=== PATIENT | female | born 1940 | race Caucasian/White ===

== ENCOUNTER 2017-01-08 16:15 | Inpatient (IN) | payer MEDICARE, OTHER ==
[2017-01-08] MEDS ORDERED: Ondansetron 4 MG/2 ML SDV IVPUSH PRN (16:54)
[2017-01-08 17:15] LABS: CHLORIDE,CL 104 mEq/L (98-106); SODIUM,NA 145 mEq/L (136-145)
--- NOTE | 2017-01-08 17:25 | EDM.PDOC ---
ED HPI GENERAL MEDICAL PROBLEM - General Chief Complaint: General Stated Complaint: N/V, abdominal pain, dizziness Time Seen by Provider: 01/08/17 17:00 Source of Information: Reports: Patient, Family History Limitations: Reports: Altered Mental Status, Other (Patient verbalizes declining health with decreased memory unable to recall recent events. Chronic ) - History of Present Illness INITIAL COMMENTS - FREE TEXT/NARRATIVE: Patient indicates she has been having declination with her health the past 4 months with decreased mentation and decreased visual acuity. Vague presentation- The past 2 days she noted to generally not feel well although was able to have breakfast with tea and toast this am. She indicates around 4:00 today increased nausea with vomiting of green bile with dizziness. She states she tried resting but continued to feel ill therefore was brought to the ER by her . Onset: Gradual Onset Date: 01/06/17 Onset Time: 08:00 Duration: Day(s):, Getting Worse Location: Reports: Abdomen Quality: Reports: Dull Severity: Mild Improves with: Reports: None Worsens with: Reports: Movement Associated Symptoms: Reports: Confusion, Nausea/Vomiting, Weakness. 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 Abdomen Pain Score (Numeric/FACES): 5 - Related Data Allergies Allergy/AdvReac Type Severity Reaction Status Date / Time No Known Allergies Allergy Verified 01/08/17 16:23 Home Meds: Home Meds Antiox #11/OM3/DHA/EPA/Lut/Colin [Eye Health Adult 50+ Softgel] 1 each PO DAILY [History] Aspirin 325 mg PO DAILY 01/08/17 [History] Cyanocobalamin (Vitamin B12) [Vitamin B13] 500 mcg PO BEDTIME 01/08/17 [History] Donepezil [Aricept] 10 mg PO QAM 01/08/17 [History] Levothyroxine [Synthroid] 88 mcg PO ACBREAKFAST 01/08/17 [History] Losartan [Cozaar] 50 mg PO DAILY 01/08/17 [History] Metoprolol Succinate 25 mg PO BEDTIME 01/08/17 [History] Pantoprazole Sodium [Protonix] 20 mg PO DAILY 01/08/17 [History] Pyridoxine HCl [Vitamin B-6] 100 mg PO DAILY 01/08/17 [History] Past Medical History HEENT History: Reports: Other (See Below) (Visual loss) Cardiovascular History: Reports: Hypertension Respiratory History: Reports: None Gastrointestinal History: Reports: GERD Genitourinary History: Reports: None 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 Musculoskeletal History: Reports: None Neurological History: Reports: Alzheimers Disease, Vertigo Psychiatric History: Reports: Alzheimers Disease, Dementia Endocrine/Metabolic History: Reports: Hypothyroidism Hematologic History: Reports: None Immunologic History: Reports: None Oncologic (Cancer) History: Reports: Uterine Dermatologic History: Reports: None - Infectious Disease History Infectious Disease History: Reports: None - Past Surgical History Head Surgeries/Procedures: Reports: None HEENT Surgical History: Reports: None Cardiovascular Surgical History: Reports: Coronary Artery Bypass Respiratory Surgical History: Reports: None GI Surgical History: Reports: Other (See Below) (GERD on PPI) Female Surgical History: Reports: Hysterectomy Endocrine Surgical History: Reports: None Neurological Surgical History: Reports: None Musculoskeletal Surgical History: Reports: None Oncologic Surgical History: Reports: None Dermatological Surgical History: Reports: None - Past Imaging History Past Imaging History: Reports: Other (See Below) (Unknown -Patient has PCP in [place]) Social & Family History - Family History Family Medical History: Noncontributory ED ROS GENERAL - Review of Systems Review Of Systems: See Below Constitutional: Reports: Malaise, Weakness, Fatigue HEENT: Reports: Glasses, Vision Change (Chronic decreased visual acuity) Respiratory: Reports: No Symptoms Cardiovascular: Reports: Lightheadedness Endocrine: Reports: Fatigue GI/Abdominal: Reports: Abdominal Pain, Mucous in Stool, Nausea, Vomiting. Denies: Anorexia, Black Stool, Bloody Stool, Decreased Appetite, Distension, Hematemesis : Reports: No Symptoms Musculoskeletal: Reports: No Symptoms Skin: Reports: No Symptoms Neurological: Reports: Confusion, Dizziness, Pre-Existing Deficit, Gait Disturbance Psychiatric: Reports: Confusion Hematologic/Lymphatic: Reports: No Symptoms Immunologic: Reports: No Symptoms ED EXAM, GENERAL - Physical Exam Exam: See Below Free Text/Narrative:: Patient indicates she has been having declination with her health the past 4 months with decreased mentation and decreased visual acuity. Vague presentation- The past 2 days she noted to generally not feel well although was able to have breakfast with tea and toast this am. She indicates around 4:00 today increased nausea with vomiting of green bile with dizziness. She states she tried resting but continued to feel ill therefore was brought to the ER by her . Exam Limited By: Altered Mental Status General Appearance: Alert, WD/WN, No Apparent Distress Eye Exam: Bilateral Eye: EOMI, Normal Fundi, Normal Inspection, PERRL, Vision Changes (Chronic) Ears: Normal External Exam, Normal Canal, Hearing Grossly Normal, Normal TMs Ear Exam: Bilateral Ear: Auricle Normal, Canal Normal, TM normal Nose: Normal Inspection, Normal Mucosa, No Blood Throat/Mouth: Normal Inspection, Normal Lips, Normal Teeth, Normal Gums, Normal Oropharynx, Normal Voice, No Airway Compromise Head: Atraumatic, Normocephalic Neck: Normal Inspection, Supple, Non-Tender, Full Range of Motion. No: Limited Range of Motion, Thyromegaly Respiratory/Chest: No Respiratory Distress, Lungs Clear, Normal Breath Sounds, No Accessory Muscle Use, Chest Non-Tender Cardiovascular: Normal Peripheral Pulses, No Edema, No Murmur, Bradycardia Peripheral Pulses: 2+: Radial (L), Radial (R), Popliteal (L), Popliteal (R), Posterior Tibial (L), Posterior Tibial (R), Dorsalis Pedis (L), Dorsalis Pedis ( R) GI/Abdominal: Normal Bowel Sounds, Soft, Non-Tender, No Organomegaly, No Distention, No Abnormal Bruit, No Mass (Female) Exam: Deferred Rectal (Female) Exam: Deferred Back Exam: Normal Inspection, Full Range of Motion Extremities: Normal Inspection, Normal Range of Motion, Non-Tender, No Pedal Edema. No: Carl's Sign, Leg Pain Neurological: Alert, Oriented, CN II-XII Intact, Normal Reflexes, Slow to Respond, Memory Loss Remote Events Psychiatric: Normal Affect, Normal Mood, Flat Affect Skin Exam: Warm, Dry, Intact, No Rash, Pallor. No: Cyanosis, Diaphoretic Lymphatic: No Adenopathy Course - Vital Signs Last Recorded V/S: Last Vital Signs Temp 36.1 C 01/08/17 16:56 Pulse 47 L 01/08/17 16:56 Resp 16 01/08/17 16:56 BP 181/78 H 01/08/17 16:56 Pulse Ox 95 01/08/17 16:56 - Orders/Labs/Meds Orders: Active Orders 24 hr Category Date Time Status Chest 1V Frontal [CR] Stat Exams 01/08/17 17:10 Ordered UA W/MICROSCOPIC [URIN] Stat Lab 01/08/17 16:54 Uncollected Ondansetron [Zofran] Med 01/08/17 16:54 Active 4 mg IVPUSH Q6H PRN Medication Orders Ondansetron HCl (Zofran) 4 mg IVPUSH Q6H PRN PRN Reason: Nausea Last Admin: 01/08/17 17:08 Dose: 4 mg Labs: Laboratory Tests 01/08/17 01/08/17 Range/Units 16:47 16:47 WBC 5.7 (5.0-10.0) 10^3/uL RBC 4.30 (4.00-5.50) 10^6/uL Hgb 12.2 (12.0-16.0) g/dL Hct 37.5 (37.0-47.0) % MCV 87.2 (82.0-94.0) fL MCH 28.4 (27.0-32.0) pg MCHC 32.5 L (33.0-38.0) g/dL RDW Coeff of Rachel 14.2 (11.0-15.0) % Plt Count 231 (150-400) 10^3/uL Neut % (Auto) 71.8 (35-85) % Lymph % (Auto) 18.0 (10-55) % Gonzales % (Auto) 8.0 (0-16) % Eos % (Auto) 1.8 (0-5) % Baso % (Auto) 0.4 (0-3) % Neut # (Auto) 4.07 (1.80-7.00) 10^3/uL Lymph # (Auto) 1.02 (1.00-4.80) 10^3/uL Gonzales # (Auto) 0.45 (0.00-0.80) 10^3/uL Eos # (Auto) 0.10 (0.00-0.45) 10^3/uL Baso # (Auto) 0.02 10^3/uL Sodium 145 (136-145) mEq/L Potassium 2.9 L* (3.5-5.0) mEq/L Chloride 104 (98-106) mEq/L Carbon Dioxide 32 (21-32) mmol/L BUN 13 (7-18) mg/dL Creatinine 0.9 (0.6-1.0) mg/dL Est Cr Clr Drug Dosing 42.61 mL/min Estimated GFR (MDRD) > 60 (>=60) mL/min Glucose 119 H (75-99) mg/dL Calcium 8.7 (8.4-10.1) mg/dL Total Bilirubin 0.5 (0.0-1.0) mg/dL AST 17 (15-37) U/L ALT 18 (12-78) U/L Alkaline Phosphatase 83 (46-116) U/L Troponin I < 0.017 (0.00-0.06) ng/mL C-Reactive Protein 0.4 (0.2-0.8) mg/dL Total Protein 6.7 (6.4-8.2) g/dL Albumin 3.2 L (3.4-5.0) g/dL Amylase 35 (25-115) U/L Meds: Medications Generic Name Dose Route Start Last Admin Trade Name Freq PRN Reason Stop Dose Admin Ondansetron HCl 4 mg 01/08/17 16:54 01/08/17 17:08 Zofran IVPUSH 4 mg Q6H PRN Administration Nausea Departure - Departure Time of Disposition: 17:41 Disposition: Admitted As Inpatient 64 Condition: Fair Clinical Impression: Hypokalemia, gastrointestinal losses, Alzheimer disease, Nausea & vomiting, Hypertension - Discharge Information Forms: ED Department Discharge MLP Sign Off - Signature Requirements MLP Sign Off: No - Problem List & Annotations (1) Hypokalemia, gastrointestinal losses SNOMED Code(s): 02348969 Code(s): E87.6 - HYPOKALEMIA Status: Acute Current Visit: Yes (2) Alzheimer disease SNOMED Code(s): 03631036 Code(s): G30.9 - ALZHEIMER'S DISEASE, UNSPECIFIED Status: Acute Current Visit: Yes Qualifiers: Alzheimer's disease onset: unspecified onset (3) Nausea & vomiting SNOMED Code(s): 12593893 Code(s): R11.2 - NAUSEA WITH VOMITING, UNSPECIFIED Status: Acute Current Visit: Yes Qualifiers: Vomiting type: bilious vomiting Qualified Code(s): R11.14 - Bilious vomiting (4) Hypertension SNOMED Code(s): 30519695 Code(s): I10 - ESSENTIAL (PRIMARY) HYPERTENSION Status: Acute Current Visit: Yes Qualifiers: Hypertension type: essential hypertension Qualified Code(s): I10 - Essential (primary) hypertension - Problem List Review Problem List Initiated/Reviewed/Updated: Yes - My Orders Last 24 Hours: My Active Orders 01/08/17 16:54 UA W/MICROSCOPIC [URIN] Stat Ondansetron [Zofran] 4 mg IVPUSH Q6H PRN 01/08/17 17:10 Chest 1V Frontal [CR] Stat - Assessment/Plan Admission H&P: Please use this note as an admission H&P Last 24 Hours: My Active Orders 01/08/17 16:54 UA W/MICROSCOPIC [URIN] Stat Ondansetron [Zofran] 4 mg IVPUSH Q6H PRN 01/08/17 17:10 Chest 1V Frontal [CR] Stat Assessment:: Evaluation and noted hypokalemia 2.9. IV Zofran effective for nausea. Admit to hospital for IVF K+ Supplementation Supportive care.
[2017-01-08] MEDS ORDERED: Sodium Chloride 0.9% 10 ML Syringe FLUSH PRN (18:23)
[2017-01-08] MEDS ORDERED: NS + KCl 20mEq/L 1,000 ML IV SCH (18:23)
[2017-01-08] MEDS ORDERED: Ondansetron 4 MG/2 ML SDV IV PRN (18:23)
[2017-01-08] MEDS ORDERED: Acetaminophen 325 MG Tab PO PRN (18:23)
[2017-01-08] MEDS: Cyanocobalamin (Vitamin B12) 1,000 MCG Tab PO SCH (20:19)
[2017-01-08] MEDS: Metoprolol Succinate 25 MG Tab.ER PO SCH (20:20)
[2017-01-09] MEDS: Levothyroxine 88 MCG Tab PO SCH (06:52)
[2017-01-09] MEDS: Pantoprazole 40 MG Tab.CR PO SCH (06:52)
[2017-01-09] MEDS: Donepezil 5 MG Tab PO SCH (07:39)
[2017-01-09] MEDS: Vitamin B6-pyridOXINE 100 MG Tab PO SCH (07:39)
[2017-01-09] MEDS: Losartan 25 MG Tab PO SCH (07:39)
[2017-01-09] MEDS ORDERED: [UNRECOGNIZED DRUG - OTHER] PO SCH (08:00)
[2017-01-09 08:33] LABS: CHLORIDE,CL 109 mEq/L (98-106); SODIUM,NA 147 mEq/L (136-145)
[2017-01-09] MEDS: Enoxaparin 30 MG/0.3 ML Syringe SUBCUT SCH (12:38)
--- NOTE | 2017-01-09 14:41 | PCM.PN ---
- General Info Date of Service: 01/09/17 Admission Dx/Problem (Free Text): Vertigo Dementia Hypokalemia Bradycardia Subjective Update: "I am doing well today, my family has been here today. I enjoy visiting with them." Functional Status: Reports: Pain Controlled, Tolerating Diet, Ambulating, Urinating, Other (Clear liquids tolerated well.) Pain Score: 0 - Review of Systems General: Reports: Weakness, Fatigue, Appetite. Denies: Fever HEENT: Reports: Other (Decreased visual acuity-chronic) Pulmonary: Reports: Other (Able to converse in full sentences). Denies: Shortness of Breath, Pleuritic Chest Pain, Cough, Sputum, Hemoptysis, Wheezing Cardiovascular: Reports: Edema (Slight non pitting-TEDs on). Denies: Chest Pain , Palpitations, Dyspnea on Exertion, Orthopnea Gastrointestinal: Reports: No Symptoms, Decreased Appetite, Flatus. Denies: Abdominal Pain, Diarrhea, Difficulty Swallowing, Melena, Nausea, Vomiting Genitourinary: Reports: No Symptoms Musculoskeletal: Reports: No Symptoms Skin: Reports: No Symptoms Neurological: Reports: Confusion (Memory deficit short term-Able to converse and recongnize family). Denies: Headache, Trouble Speaking, Weakness, Change in Speech, Gait Disturbance Psychiatric: Reports: Confusion (Intermittent) - Patient Data Vitals - Most Recent: Last Vital Signs Temp 36.7 C 01/09/17 12:00 Pulse 56 L 01/09/17 12:00 Resp 16 01/09/17 12:00 BP 150/68 H 01/09/17 12:00 Pulse Ox 56 L 01/09/17 12:00 Weight - Most Recent: 78.88 kg I&O - Last 24 Hours: Intake & Output 01/08/17 01/09/17 01/09/17 22:59 06:59 14:59 Intake Total 300 Output Total 200 Balance 100 Lab Results Last 24 Hours: Laboratory Results - last 24 hr 01/08/17 01/09/17 Range/Units 19:24 07:00 Sodium 147 H (136-145) mEq/L Potassium 3.2 L (3.5-5.0) mEq/L Chloride 109 H (98-106) mEq/L Carbon Dioxide 31 (21-32) mmol/L BUN 13 (7-18) mg/dL Creatinine 0.9 (0.6-1.0) mg/dL Est Cr Clr Drug Dosing 42.61 mL/min Estimated GFR (MDRD) > 60 (>=60) mL/min Glucose 86 D (75-99) mg/dL Calcium 8.2 L (8.4-10.1) mg/dL Magnesium 1.5 L (1.8-2.4) mg/dL Total Bilirubin 0.5 (0.0-1.0) mg/dL AST 21 (15-37) U/L ALT 19 (12-78) U/L Alkaline Phosphatase 74 (46-116) U/L Ehs-Q-Rfybuxliquk Pept 1807 H (0-1000) pg/nL Total Protein 5.8 L (6.4-8.2) g/dL Albumin 2.7 L (3.4-5.0) g/dL Urine Color Yellow (YELLOW) Urine Appearance Cloudy (CLEAR) Urine pH 5.5 (4.5-8.0) Ur Specific [place] 1.025 H (1.003-1.020) Urine Protein Negative (NEGATIVE) mg/dL Urine Glucose (UA) Negative (NEGATIVE) mg/dL Urine Ketones 40 H (NEGATIVE) mg/dL Urine Occult Blood Negative (NEGATIVE) Urine Nitrite Negative (NEGATIVE) Urine Bilirubin Negative (NEGATIVE) Urine Urobilinogen 0.2 (0.2-1.0) EU/dL Ur Leukocyte Esterase Negative (NEGATIVE) Urine RBC Not seen (0-5) /HPF Urine WBC Not seen (0-5) /HPF Med Orders - Current: Current Medications Acetaminophen (Tylenol) 650 mg PO Q4H PRN PRN Reason: Pain (Mild 1-3)/fever Cyanocobalamin (Vitamin B12) 500 mcg PO BEDTIME [facility] Last Admin: 01/08/17 20:19 Dose: 500 mcg Donepezil HCl (Aricept) 10 mg PO QAM [facility] Last Admin: 01/09/17 07:39 Dose: 10 mg Enoxaparin Sodium (Lovenox) 30 mg SUBCUT Q24H [facility] Last Admin: 01/09/17 12:38 Dose: 30 mg Levothyroxine Sodium (Synthroid) 88 mcg PO ACBREAKFAST [facility] Last Admin: 01/09/17 06:52 Dose: 88 mcg Losartan Potassium (Cozaar) 50 mg PO DAILY [facility] Last Admin: 01/09/17 07:39 Dose: 50 mg Metoprolol Succinate (Toprol Xl) 25 mg PO BEDTIME [facility] Last Admin: 01/08/17 20:20 Dose: 25 mg Ondansetron HCl (Zofran) 4 mg IV Q6H PRN PRN Reason: Nausea/Vomiting Pantoprazole Sodium (Protonix) 20 mg PO DAILY@0700 [facility] Last Admin: 01/09/17 06:52 Dose: 20 mg Potassium Chloride (Klor-Con 10) 20 meq PO BIDMEALS [facility] Pyridoxine HCl (Vitamin B6-Pyridoxine) 100 mg PO DAILY [facility] Last Admin: 01/09/17 07:39 Dose: 100 mg Sodium Chloride (Saline Flush) 10 ml FLUSH ASDIRECTED PRN PRN Reason: Keep Vein Open Discontinued Medications Potassium Chloride/Sodium Chloride (Normal Saline With 20 Meq Kcl) 1,000 mls @ 125 mls/hr IV ASDIRECTED [facility] Last Admin: 01/08/17 18:59 Dose: 125 mls/hr Non-Formulary Medication (Antiox #11/Om3/Dha/Epa/Lut/Colin [Eye Health Adult 50+ Softgel]) 1 each PO DAILY [facility] Ondansetron HCl (Zofran) 4 mg IVPUSH Q6H PRN PRN Reason: Nausea Last Admin: 01/08/17 17:08 Dose: 4 mg - Exam Quality Assessment: DVT Prophylaxis. No: Supplemental Oxygen, Central Line/PICC , Urine Catheter, Skin Breakdown General: Alert, Oriented, Cooperative, No Acute Distress HEENT: Pupils Equal, Pupils Reactive, EOMI, Mucous Membr. Moist/[place]. No: Scleral Icterus Neck: Supple, Trachea Midline, No JVD, No Thyromegaly Lungs: Clear to Auscultation, Normal Respiratory Effort, Decreased Breath Sounds (Bilateral lower lung mills) Cardiovascular: Regular Rhythm, No Murmurs, Bradycardia GI/Abdominal Exam: Soft, Non-Tender, No Distention (Female) Exam: Deferred Back Exam: Normal Inspection, Full Range of Motion Extremities: Normal Inspection, Normal Range of Motion, Pedal Edema (Non pitting ). No: Carl's Sign - Problem List & Annotations (1) Hypokalemia, gastrointestinal losses SNOMED Code(s): 73397944 Code(s): E87.6 - HYPOKALEMIA Status: Acute Current Visit: Yes (2) Alzheimer disease SNOMED Code(s): 64056885 Code(s): G30.9 - ALZHEIMER'S DISEASE, UNSPECIFIED Status: Acute Current Visit: Yes Qualifiers: Alzheimer's disease onset: unspecified onset (3) Nausea & vomiting SNOMED Code(s): 19505636 Code(s): R11.2 - NAUSEA WITH VOMITING, UNSPECIFIED Status: Acute Current Visit: Yes Qualifiers: Vomiting type: bilious vomiting Qualified Code(s): R11.14 - Bilious vomiting (4) Hypertension SNOMED Code(s): 80670270 Code(s): I10 - ESSENTIAL (PRIMARY) HYPERTENSION Status: Acute Current Visit: Yes Qualifiers: Hypertension type: essential hypertension Qualified Code(s): I10 - Essential (primary) hypertension - Problem List Review Problem List Initiated/Reviewed/Updated: Yes - My Orders Last 24 Hours: My Active Orders 01/08/17 17:44 Resuscitation Status Routine 01/08/17 18:23 Patient Status [ADT] Routine Cardiac Monitoring [RC] 0800,2000 Intake and Output [RC] 0600,1800 Oxygen Therapy [RC] .PRN Peripheral IV Care [RC] 0800,2000 Up With Assistance [RC] .PRN Urinary Catheter Assessment [RC] .PRN Vital Signs [RC] 0000,0400,0800,1200,1600,2000 Acetaminophen [Tylenol] 650 mg PO Q4H PRN Ondansetron [Zofran] 4 mg IV Q6H PRN Sodium Chloride 0.9% [Saline Flush] 10 ml FLUSH ASDIRECTED PRN Peripheral IV Insertion Adult [OM.PC] Routine 01/08/17 18:25 Consult to Communication Instructor [CONS] Routine 01/08/17 20:00 Cyanocobalamin (Vitamin B12) [Vitamin B12] 500 mcg PO BEDTIME Metoprolol Succinate [Toprol XL] 25 mg PO BEDTIME 01/08/17 Dinner Clear Liquid Diet [DIET] 01/09/17 07:00 Levothyroxine [Synthroid] 88 mcg PO ACBREAKFAST Pantoprazole [ProTONIX] 20 mg PO DAILY@0700 01/09/17 08:00 Donepezil [Aricept] 10 mg PO QAM Losartan [Cozaar] 50 mg PO DAILY Vitamin B6-pyridOXINE 100 mg PO DAILY 01/09/17 08:18 Antiembolic Devices [RC] PER UNIT ROUTINE Antiembolic Hose [OM.PC] Routine 01/09/17 12:00 Enoxaparin [Lovenox] 30 mg SUBCUT Q24H 01/09/17 17:30 Potassium Chloride [Klor-Con 10] 20 meq PO BIDMEALS 01/10/17 07:00 CMP [COMPREHENSIVE METABOLIC PN,CMP] [CHEM] Routine PRO B-TYPE NATRIUR PEPT,BNPPRO [CHEM] DAILY 01/11/17 07:00 PRO B-TYPE NATRIUR PEPT,BNPPRO [CHEM] DAILY - Assessment Assessment:: Resolving gastroenteritis is able to tolerate po fluids without nausea or vomiting. Resolved Hypokalemia with change to PO Alzheimers-Evaluation from Communication Instructor Bradycardia CHF with elevated BMP-Discontinue IVF-refer back to PCP Cardiology. - Plan Plan:: Will discontinue IVF and IV potassium supplementation. Hep Lock IV and change order to PO potassium supplementation. Advance diet as tolerated. Increase activity as tolerated. Continue close observation. Anticipate discharge to as indicated possible NH placement.
[2017-01-09] MEDS ORDERED: Potassium Chloride 10% 20 MEQ/15 ML Soln 15 ML UD Cup PO SCH (17:30)
[2017-01-09] MEDS: Potassium Chloride 10 MEQ Tab.ER PO SCH (17:30)
[2017-01-09] MEDS: Cyanocobalamin (Vitamin B12) 1,000 MCG Tab PO SCH (19:46)
[2017-01-09] MEDS: Metoprolol Succinate 25 MG Tab.ER PO SCH (19:46)
[2017-01-10] MEDS: Levothyroxine 88 MCG Tab PO SCH (07:05)
[2017-01-10] MEDS: Pantoprazole 40 MG Tab.CR PO SCH (07:06)
[2017-01-10] MEDS: Potassium Chloride 10 MEQ Tab.ER PO SCH ×2 (07:41→17:17)
[2017-01-10] MEDS: Donepezil 5 MG Tab PO SCH (07:41)
[2017-01-10] MEDS: Vitamin B6-pyridOXINE 100 MG Tab PO SCH (07:42)
[2017-01-10] MEDS: Losartan 25 MG Tab PO SCH (07:42)
[2017-01-10 08:30] LABS: CHLORIDE,CL 108 mEq/L (98-106); SODIUM,NA 145 mEq/L (136-145)
--- NOTE | 2017-01-10 11:39 | PCM.PN ---
- General Info Date of Service: 01/10/17 Admission Dx/Problem (Free Text): Gastroenteritis Vertigo Dementia Hypokalemia Bradycardia Subjective Update: 01-09-2017 "I am doing well today, my family has been here today. I enjoy visiting with them." Functional Status: Reports: Pain Controlled, Tolerating Diet, Ambulating, Urinating. Denies: New Symptoms Pain Score: 0 - Review of Systems General: Reports: No Symptoms. Denies: Fever, Weakness HEENT: Reports: No Symptoms Pulmonary: Reports: No Symptoms Cardiovascular: Reports: No Symptoms Gastrointestinal: Reports: No Symptoms. Denies: Abdominal Pain, Decreased Appetite, Diarrhea, Melena, Nausea, Vomiting Genitourinary: Reports: No Symptoms Musculoskeletal: Reports: No Symptoms Skin: Reports: No Symptoms Neurological: Reports: Confusion, Other (Decreased short term memory per . Confusion persists) Psychiatric: Reports: Confusion. Denies: Depression, Mood Lability, Anxiety, Agitation - Patient Data Vitals - Most Recent: Last Vital Signs Temp 36.5 C 01/10/17 07:50 Pulse 57 L 01/10/17 07:50 Resp 16 01/10/17 07:50 BP 137/57 L 01/10/17 07:50 Pulse Ox 95 01/10/17 07:50 Weight - Most Recent: 78.88 kg I&O - Last 24 Hours: Intake & Output 01/09/17 01/10/17 01/10/17 22:59 06:59 14:59 Intake Total 915 540 365 Output Total 650 350 Balance 265 190 365 Lab Results Last 24 Hours: Laboratory Results - last 24 hr 01/10/17 01/10/17 Range/Units 07:00 07:00 WBC 4.7 L (5.0-10.0) 10^3/uL RBC 3.73 L (4.00-5.50) 10^6/uL Hgb 10.7 L (12.0-16.0) g/dL Hct 33.4 L (37.0-47.0) % MCV 89.5 (82.0-94.0) fL MCH 28.7 (27.0-32.0) pg MCHC 32.0 L (33.0-38.0) g/dL RDW Coeff of Rachel 14.6 (11.0-15.0) % Plt Count 201 (150-400) 10^3/uL Neut % (Auto) 61.4 (35-85) % Lymph % (Auto) 26.2 (10-55) % [place] % (Auto) 9.3 (0-16) % Eos % (Auto) 2.7 (0-5) % Baso % (Auto) 0.4 (0-3) % Neut # (Auto) 2.91 (1.80-7.00) 10^3/uL Lymph # (Auto) 1.24 (1.00-4.80) 10^3/uL [place] # (Auto) 0.44 (0.00-0.80) 10^3/uL Eos # (Auto) 0.13 (0.00-0.45) 10^3/uL Baso # (Auto) 0.02 10^3/uL Sodium 145 (136-145) mEq/L Potassium 3.3 L (3.5-5.0) mEq/L Chloride 108 H (98-106) mEq/L Carbon Dioxide 31 (21-32) mmol/L BUN 12 (7-18) mg/dL Creatinine 0.8 (0.6-1.0) mg/dL Est Cr Clr Drug Dosing 47.94 mL/min Estimated GFR (MDRD) > 60 (>=60) mL/min Glucose 89 (75-99) mg/dL Calcium 8.0 L (8.4-10.1) mg/dL Total Bilirubin 0.4 (0.0-1.0) mg/dL AST 17 (15-37) U/L ALT 18 (12-78) U/L Alkaline Phosphatase 67 (46-116) U/L C-Reactive Protein < 0.2 L (0.2-0.8) mg/dL Jfo-N-Mnkgsrrvecd Pept 1913 H (0-1000) pg/nL Total Protein 5.5 L (6.4-8.2) g/dL Albumin 2.5 L (3.4-5.0) g/dL Med Orders - Current: Current Medications Acetaminophen (Tylenol) 650 mg PO Q4H PRN PRN Reason: Pain (Mild 1-3)/fever Cyanocobalamin (Vitamin B12) 500 mcg PO BEDTIME [facility] Last Admin: 01/09/17 19:46 Dose: 500 mcg Donepezil HCl (Aricept) 10 mg PO QAM [facility] Last Admin: 01/10/17 07:41 Dose: 10 mg Enoxaparin Sodium (Lovenox) 30 mg SUBCUT Q24H [facility] Last Admin: 01/09/17 12:38 Dose: 30 mg Levothyroxine Sodium (Synthroid) 88 mcg PO ACBREAKFAST [facility] Last Admin: 01/10/17 07:05 Dose: 88 mcg Losartan Potassium (Cozaar) 50 mg PO DAILY [facility] Last Admin: 01/10/17 07:42 Dose: 50 mg Metoprolol Succinate (Toprol Xl) 25 mg PO BEDTIME [facility] Last Admin: 01/09/17 19:46 Dose: Not Given Ondansetron HCl (Zofran) 4 mg IV Q6H PRN PRN Reason: Nausea/Vomiting Pantoprazole Sodium (Protonix) 20 mg PO DAILY@0700 [facility] Last Admin: 01/10/17 07:06 Dose: 20 mg Potassium Chloride (Klor-Con 10) 20 meq PO BIDMEALS [facility] Last Admin: 01/10/17 07:41 Dose: 20 meq Pyridoxine HCl (Vitamin B6-Pyridoxine) 100 mg PO DAILY [facility] Last Admin: 01/10/17 07:42 Dose: 100 mg Sodium Chloride (Saline Flush) 10 ml FLUSH ASDIRECTED PRN PRN Reason: Keep Vein Open Discontinued Medications Potassium Chloride/Sodium Chloride (Normal Saline With 20 Meq Kcl) 1,000 mls @ 125 mls/hr IV ASDIRECTED [facility] Last Admin: 01/08/17 18:59 Dose: 125 mls/hr Non-Formulary Medication (Antiox #11/Om3/Dha/Epa/Lut/Colin [Eye Health Adult 50+ Softgel]) 1 each PO DAILY [facility] Ondansetron HCl (Zofran) 4 mg IVPUSH Q6H PRN PRN Reason: Nausea Last Admin: 01/08/17 17:08 Dose: 4 mg - Exam Quality Assessment: DVT Prophylaxis. No: Supplemental Oxygen, Skin Breakdown General: Alert, Oriented, Cooperative, No Acute Distress HEENT: Pupils Equal, Pupils Reactive, EOMI, Mucous Membr. Moist/[place] Neck: Supple Lungs: Clear to Auscultation, Normal Respiratory Effort. No: Crackles, Rales Cardiovascular: Regular Rhythm, Bradycardia (Increases to 68 range with activity ) GI/Abdominal Exam: Normal Bowel Sounds, Soft, Non-Tender, Other (BM today) (Female) Exam: Deferred Back Exam: Normal Inspection, Full Range of Motion Extremities: Normal Inspection, Normal Range of Motion, Normal Capillary Refill , Pedal Edema (Trace edema). No: Carl's Sign (TEDS patent) Peripheral Pulses: 2+: Brachial (L), Brachial (R), Radial (L), Radial (R), Femoral (L), Femoral (R), Popliteal (L), Popliteal (R), Dorsalis Pedis (L), Dorsalis Pedis (R) Skin: Warm, Dry, Intact Wound/Incisions: Dressing Dry and Intact (Hep Lock Intact) Neurological: No New Focal Deficit, Normal Gait, Strength Equal Bilateral, Sensation Intact Psy/Mental Status: Alert, Normal Affect, Normal Mood - Problem List & Annotations (1) Hypokalemia, gastrointestinal losses SNOMED Code(s): 83964921 Code(s): E87.6 - HYPOKALEMIA Status: Acute Current Visit: Yes (2) Alzheimer disease SNOMED Code(s): 04323608 Code(s): G30.9 - ALZHEIMER'S DISEASE, UNSPECIFIED Status: Acute Current Visit: Yes Qualifiers: Alzheimer's disease onset: unspecified onset (3) Nausea & vomiting SNOMED Code(s): 54176766 Code(s): R11.2 - NAUSEA WITH VOMITING, UNSPECIFIED Status: Acute Current Visit: Yes Qualifiers: Vomiting type: bilious vomiting Qualified Code(s): R11.14 - Bilious vomiting (4) Hypertension SNOMED Code(s): 45808990 Code(s): I10 - ESSENTIAL (PRIMARY) HYPERTENSION Status: Acute Current Visit: Yes Qualifiers: Hypertension type: essential hypertension Qualified Code(s): I10 - Essential (primary) hypertension - Problem List Review Problem List Initiated/Reviewed/Updated: Yes - My Orders Last 24 Hours: My Active Orders 01/09/17 12:00 Enoxaparin [Lovenox] 30 mg SUBCUT Q24H 01/09/17 17:30 Potassium Chloride [Klor-Con 10] 20 meq PO BIDMEALS 01/09/17 Dinner Mechanical Soft Diet [DIET] 01/11/17 05:50 CBC WITH AUTO DIFF [HEME] Routine COMPREHENSIVE METABOLIC PN,CMP [CHEM] Routine MAGNESIUM [CHEM] Routine 01/11/17 07:00 PRO B-TYPE NATRIUR PEPT,BNPPRO [CHEM] DAILY - Assessment Assessment:: Resolving gastroenteritis is able to tolerate po fluids without nausea or vomiting. Resolved Hypokalemia with change to PO K+ Alzheimers-Evaluation for NH placement- from Metrologist Bradycardia CHF with elevated BMP- - Plan Plan:: Will discontinue IVF and IV potassium supplementation. Hep Lock IV and change order to PO potassium supplementation. Advance diet as tolerated. Increase activity as tolerated. Continue close observation. Anticipate discharge to as indicated possible NH placement. 01-10-2017 Discontinue IVF-advance diet as tolerated. Increase activity. Close Observation. Monitor BNP and heart failure refer back to PCP Cardiology.
[2017-01-10] MEDS: Enoxaparin 30 MG/0.3 ML Syringe SUBCUT SCH (12:58)
[2017-01-10] MEDS: Cyanocobalamin (Vitamin B12) 1,000 MCG Tab PO SCH (19:43)
[2017-01-10] MEDS: Metoprolol Succinate 25 MG Tab.ER PO SCH (19:44)
--- NOTE | 2017-01-10 21:00 | PCM.PN ---
- General Info Date of Service: 01/10/17 Admission Dx/Problem (Free Text): Gastroenteritis Vertigo Dementia Hypokalemia Bradycardia Subjective Update: 01-09-2017 "I am doing well today, my family has been here today. I enjoy visiting with them." Functional Status: Reports: Pain Controlled, Tolerating Diet Pain Score: 0 - Review of Systems General: Reports: No Symptoms HEENT: Reports: No Symptoms Pulmonary: Reports: No Symptoms Cardiovascular: Reports: Edema Gastrointestinal: Reports: No Symptoms Genitourinary: Reports: No Symptoms Musculoskeletal: Reports: No Symptoms Skin: Reports: No Symptoms Neurological: Reports: No Symptoms Psychiatric: Reports: No Symptoms - Patient Data Vitals - Most Recent: Last Vital Signs Temp 36.1 C 01/10/17 20:00 Pulse 51 L 01/10/17 20:00 Resp 18 01/10/17 20:00 BP 187/74 H 01/10/17 20:00 Pulse Ox 97 01/10/17 20:00 Weight - Most Recent: 78.88 kg I&O - Last 24 Hours: Intake & Output 01/10/17 01/10/17 01/10/17 06:59 14:59 22:59 Intake Total 540 730 850 Output Total 350 Balance 190 730 850 Lab Results Last 24 Hours: Laboratory Results - last 24 hr 01/10/17 01/10/17 Range/Units 07:00 07:00 WBC 4.7 L (5.0-10.0) 10^3/uL RBC 3.73 L (4.00-5.50) 10^6/uL Hgb 10.7 L (12.0-16.0) g/dL Hct 33.4 L (37.0-47.0) % MCV 89.5 (82.0-94.0) fL MCH 28.7 (27.0-32.0) pg MCHC 32.0 L (33.0-38.0) g/dL RDW Coeff of Rachel 14.6 (11.0-15.0) % Plt Count 201 (150-400) 10^3/uL Neut % (Auto) 61.4 (35-85) % Lymph % (Auto) 26.2 (10-55) % [place] % (Auto) 9.3 (0-16) % Eos % (Auto) 2.7 (0-5) % Baso % (Auto) 0.4 (0-3) % Neut # (Auto) 2.91 (1.80-7.00) 10^3/uL Lymph # (Auto) 1.24 (1.00-4.80) 10^3/uL [place] # (Auto) 0.44 (0.00-0.80) 10^3/uL Eos # (Auto) 0.13 (0.00-0.45) 10^3/uL Baso # (Auto) 0.02 10^3/uL Sodium 145 (136-145) mEq/L Potassium 3.3 L (3.5-5.0) mEq/L Chloride 108 H (98-106) mEq/L Carbon Dioxide 31 (21-32) mmol/L BUN 12 (7-18) mg/dL Creatinine 0.8 (0.6-1.0) mg/dL Est Cr Clr Drug Dosing 47.94 mL/min Estimated GFR (MDRD) > 60 (>=60) mL/min Glucose 89 (75-99) mg/dL Calcium 8.0 L (8.4-10.1) mg/dL Total Bilirubin 0.4 (0.0-1.0) mg/dL AST 17 (15-37) U/L ALT 18 (12-78) U/L Alkaline Phosphatase 67 (46-116) U/L C-Reactive Protein < 0.2 L (0.2-0.8) mg/dL Uji-F-Dhejowzrsxv Pept 1913 H (0-1000) pg/nL Total Protein 5.5 L (6.4-8.2) g/dL Albumin 2.5 L (3.4-5.0) g/dL Med Orders - Current: Current Medications Acetaminophen (Tylenol) 650 mg PO Q4H PRN PRN Reason: Pain (Mild 1-3)/fever Cyanocobalamin (Vitamin B12) 500 mcg PO BEDTIME [facility] Last Admin: 01/10/17 19:43 Dose: 500 mcg Donepezil HCl (Aricept) 10 mg PO QAM [facility] Last Admin: 01/10/17 07:41 Dose: 10 mg Enoxaparin Sodium (Lovenox) 30 mg SUBCUT Q24H [facility] Last Admin: 01/10/17 12:58 Dose: 30 mg Levothyroxine Sodium (Synthroid) 88 mcg PO ACBREAKFAST [facility] Last Admin: 01/10/17 07:05 Dose: 88 mcg Losartan Potassium (Cozaar) 50 mg PO DAILY [facility] Last Admin: 01/10/17 07:42 Dose: 50 mg Ondansetron HCl (Zofran) 4 mg IV Q6H PRN PRN Reason: Nausea/Vomiting Pantoprazole Sodium (Protonix) 20 mg PO DAILY@0700 [facility] Last Admin: 01/10/17 07:06 Dose: 20 mg Potassium Chloride (Klor-Con 10) 20 meq PO BIDMEALS [facility] Last Admin: 01/10/17 17:17 Dose: 20 meq Pyridoxine HCl (Vitamin B6-Pyridoxine) 100 mg PO DAILY [facility] Last Admin: 01/10/17 07:42 Dose: 100 mg Sodium Chloride (Saline Flush) 10 ml FLUSH ASDIRECTED PRN PRN Reason: Keep Vein Open Discontinued Medications Potassium Chloride/Sodium Chloride (Normal Saline With 20 Meq Kcl) 1,000 mls @ 125 mls/hr IV ASDIRECTED [facility] Last Admin: 01/08/17 18:59 Dose: 125 mls/hr Metoprolol Succinate (Toprol Xl) 25 mg PO BEDTIME [facility] Last Admin: 01/10/17 19:44 Dose: Not Given Non-Formulary Medication (Antiox #11/Om3/Dha/Epa/Lut/Colin [Eye Health Adult 50+ Softgel]) 1 each PO DAILY [facility] Ondansetron HCl (Zofran) 4 mg IVPUSH Q6H PRN PRN Reason: Nausea Last Admin: 01/08/17 17:08 Dose: 4 mg - Exam Quality Assessment: DVT Prophylaxis General: Alert, Oriented, Cooperative HEENT: Pupils Equal, Pupils Reactive Neck: Supple Lungs: Clear to Auscultation, Normal Respiratory Effort Cardiovascular: Bradycardia GI/Abdominal Exam: Soft, Non-Tender (Female) Exam: Deferred Back Exam: Normal Inspection Extremities: Normal Inspection, Normal Range of Motion, Non-Tender, Pedal Edema Peripheral Pulses: 2+: Dorsalis Pedis (L), Dorsalis Pedis (R) Skin: Warm, Dry, Intact Wound/Incisions: Dressing Dry and Intact (Hep Lock intact) Neurological: No New Focal Deficit Psy/Mental Status: Alert, Normal Affect, Normal Mood - Problem List & Annotations (1) Hypokalemia, gastrointestinal losses SNOMED Code(s): 87018142 Code(s): E87.6 - HYPOKALEMIA Status: Acute Current Visit: Yes (2) Alzheimer disease SNOMED Code(s): 58237894 Code(s): G30.9 - ALZHEIMER'S DISEASE, UNSPECIFIED Status: Acute Current Visit: Yes Qualifiers: Alzheimer's disease onset: unspecified onset (3) Nausea & vomiting SNOMED Code(s): 39659106 Code(s): R11.2 - NAUSEA WITH VOMITING, UNSPECIFIED Status: Acute Current Visit: Yes Qualifiers: Vomiting type: bilious vomiting Qualified Code(s): R11.14 - Bilious vomiting (4) Hypertension SNOMED Code(s): 61638551 Code(s): I10 - ESSENTIAL (PRIMARY) HYPERTENSION Status: Acute Current Visit: Yes Qualifiers: Hypertension type: essential hypertension Qualified Code(s): I10 - Essential (primary) hypertension (5) Bradycardia SNOMED Code(s): 84244961 Code(s): R00.1 - BRADYCARDIA, UNSPECIFIED Status: Acute Current Visit: Yes - Problem List Review Problem List Initiated/Reviewed/Updated: Yes - My Orders Last 24 Hours: My Active Orders 01/11/17 05:50 CBC WITH AUTO DIFF [HEME] Routine COMPREHENSIVE METABOLIC PN,CMP [CHEM] Routine MAGNESIUM [CHEM] Routine 01/11/17 07:00 PRO B-TYPE NATRIUR PEPT,BNPPRO [CHEM] DAILY - Assessment Assessment:: Resolving gastroenteritis is able to tolerate po fluids without nausea or vomiting. Resolved Hypokalemia with change to PO K+ Alzheimers-Evaluation for NH placement- from Mental Health Associate Bradycardia CHF with elevated BMP- - Notified by RN patient brdaycardia persists and Metoprolol 25 mg XL was held last evening as well as this evening per protocol. B/P controlled fairly well on Losartan. As patient has not had for 2 days, therefore will discontinue and monitor Telemetry for the next 24 hours for increase rate and rhythm changes. - Plan Plan:: Will discontinue IVF and IV potassium supplementation. Hep Lock IV and change order to PO potassium supplementation. Advance diet as tolerated. Increase activity as tolerated. Continue close observation. Anticipate discharge to as indicated possible NH placement. 01-10-2017 Discontinue IVF-advance diet as tolerated. Increase activity. Close Observation. Monitor BNP and heart failure refer back to PCP Cardiology.
[2017-01-11] MEDS: Pantoprazole 40 MG Tab.CR PO SCH (07:12)
[2017-01-11] MEDS: Levothyroxine 88 MCG Tab PO SCH (07:12)
[2017-01-11 07:58] LABS: CHLORIDE,CL 106 mEq/L (98-106); SODIUM,NA 142 mEq/L (136-145)
[2017-01-11] MEDS ORDERED: Magnesium Sulfate/D5W 2 GM in Premix Bag 1 BAG IV ONE (08:00)
[2017-01-11] MEDS: Losartan 25 MG Tab PO SCH (08:01)
[2017-01-11] MEDS: Potassium Chloride 10 MEQ Tab.ER PO SCH ×2 (08:02→17:54)
[2017-01-11] MEDS: Vitamin B6-pyridOXINE 100 MG Tab PO SCH (08:02)
[2017-01-11] MEDS: Donepezil 5 MG Tab PO SCH (08:02)
[2017-01-11] MEDS: Enoxaparin 30 MG/0.3 ML Syringe SUBCUT SCH (08:06)
--- NOTE | 2017-01-11 08:52 | PN ---
DATE: 01/11/2017 S: Kimberly Ruiz is an elderly female who came in with confusion and inability to walk, hypokalemia, and little bit of heart failure. O: GENERAL: The patient is somewhat confused, obviously cannot see. NECK: Supple. CHEST: Clear. CARDIAC: Regular. EXTREMITIES: Minimal edema. ASSESSMENT: CONGESTIVE HEART FAILURE, LEFT VENTRICULAR SYSTOLIC, DEMENTIA. P: I am going to order additional lab and CT her head today. KARIN/ANDERS /[id number]
[2017-01-11] MEDS ORDERED: cloNIDine 0.1 MG Tab PO PRN (16:09)
[2017-01-11] MEDS: Cyanocobalamin (Vitamin B12) 1,000 MCG Tab PO SCH (20:28)
[2017-01-12] MEDS: Pantoprazole 40 MG Tab.CR PO SCH (06:57)
[2017-01-12] MEDS: Levothyroxine 88 MCG Tab PO SCH (06:57)
[2017-01-12 07:34] VITALS: BP 155/68
[2017-01-12] MEDS: Donepezil 5 MG Tab PO SCH (08:08)
[2017-01-12] MEDS: Losartan 25 MG Tab PO SCH (08:08)
[2017-01-12] MEDS: Potassium Chloride 10 MEQ Tab.ER PO SCH (08:08)
[2017-01-12] MEDS: Vitamin B6-pyridOXINE 100 MG Tab PO SCH (08:09)
[2017-01-12] MEDS: Enoxaparin 30 MG/0.3 ML Syringe SUBCUT SCH (08:09)
--- NOTE | 2017-01-13 08:10 | DISCH ---
HOSPITAL COURSE: This is an elderly white female who came in confused, made the diagnosis of dementia. She was admitted to the hospital, placed on telemetry and she had difficulty with some tachy-leena type thing, so her metoprolol was held. Blood pressure is now up a little bit, so we gave her some clonidine which brought it down. Rest of the lab, she was mildly anemic with her hemoglobin down to 10.7, probably from hydration popped to 11.4. D-dimer normal. Panel-8, she was hypokalemic. She was started on some potassium. ProBNP is mildly elevated at 2058. Family did not want to pursue that. TSH mildly elevated at 5.78, but T4 was normal. Urinalysis good. DISPOSITION: The patient now discharged to the long-term permanently, [facility]. DISCHARGE MEDICATIONS: As per hospital. DISCHARGE DIAGNOSIS: 1. CONFUSION, WEAKNESS. 2. HYPERTENSION. 3. DEMENTIA. JASMIN /[id number]
== END 2017-01-12 10:10 | DRG 57 ==
LOC: CC.ED 16:15 → UNDOADMIN 17:40 → CC.MS 17:40 → UNDOADMIN 18:23 → CC.MS 18:23 → UNDODISIN 01-12 10:10
PROVIDERS: ADMIT Nurse Practitioner; ATTEND General Practice
DX: G30.9 Alzheimer's disease, unspecified (principal); F02.80 Dementia in other diseases classified elsewhere, unspecified severity, without behavioral disturbance, psychotic disturbance, mood disturbance, and anxiety; E87.6 Hypokalemia; I10 Essential (primary) hypertension; K21.9 Gastro-esophageal reflux disease without esophagitis; E03.9 Hypothyroidism, unspecified; D64.9 Anemia, unspecified; Z95.1 Presence of aortocoronary bypass graft; R11.14 Bilious vomiting; R00.1 Bradycardia, unspecified; K52.9 Noninfective gastroenteritis and colitis, unspecified; I50.9 Heart failure, unspecified; R42 Dizziness and giddiness; I11.0 Hypertensive heart disease with heart failure; R05 Cough
CPT/HCPCS: 36415; 71010; 80053; 82150; 84484; 85025; 86140; 93005; 96374; 99285; J2405; 70450; 81001; 82607; 82746; 83735; 83880; 84439; 84443; 85379; 85651; 93010; A9270-GY; J1650; J3475; J3480

== ENCOUNTER 2017-01-16 19:40 | Emergency (ER) | payer MEDICARE, OTHER ==
[2017-01-16 19:58] VITALS: BP 191/76
[2017-01-16] MEDS ORDERED: Ondansetron 4 MG/2 ML SDV IM ONE (20:09)
--- NOTE | 2017-01-16 20:15 | EDM.PDOC ---
ED HPI GENERAL MEDICAL PROBLEM - General Chief Complaint: General Stated Complaint: dizzy and nauseated Time Seen by Provider: 01/16/17 19:50 Source of Information: Reports: Patient History Limitations: Reports: No Limitations - History of Present Illness INITIAL COMMENTS - FREE TEXT/NARRATIVE: Patient presents from [facility] with concerns of dizziness, nausea. Was recently admitted there after a short stay in the hospital for hypokalemia and tachy- leena syndrome. Has Alzheimer's Dementia and her confusion had been worsening. On day she presented to the ED here, she was dizzy, sweating and overall, just not feeling well. relates she had been declining over the last 4 months. While hospitalized, it was noted she had mild CHF but family declined pursuing this. She was on Metoprolol and that was stopped due to the bradycardia. Clonidine had been given for high blood pressure as it had been variable. states when she tries to walk, she does lean and seems off balance. This was also occurring prior to the last hospitalization. Biggest concern per is that it all started acutely again. Onset: Today, Sudden Duration: Minutes: Location: Reports: Generalized Quality: Reports: Ache, Dull Severity: Mild Worsens with: Reports: Movement Associated Symptoms: Reports: Confusion, Chest Pain, Headaches, Nausea/ Vomiting. Denies: Diaphoresis, Fever/Chills, Shortness of Breath, Syncope Treatments ROLLER ENGRAVER: Reports: Acetaminophen, Other (see below) Other Treatments ROLLER ENGRAVER: gi cocktail Head Pain Score (Numeric/FACES): 4 - Related Data Allergies Allergy/AdvReac Type Severity Reaction Status Date / Time No Known Allergies Allergy Verified 01/16/17 20:05 Home Meds: Home Meds Antiox #11/OM3/DHA/EPA/Lut/Colin [Eye Health Adult 50+ Softgel] 1 each PO DAILY [History] Aspirin 325 mg PO DAILY 01/08/17 [History] Cyanocobalamin (Vitamin B12) [Vitamin B12] 500 mcg PO BEDTIME 01/08/17 [History] Donepezil [Aricept] 10 mg PO QAM 01/08/17 [History] Levothyroxine [Synthroid] 88 mcg PO ACBREAKFAST 01/08/17 [History] Losartan [Cozaar] 50 mg PO DAILY 01/08/17 [History] Metoprolol Succinate 25 mg PO BEDTIME 01/08/17 [History] Pantoprazole Sodium [Protonix] 20 mg PO DAILY 01/08/17 [History] Pyridoxine HCl [Vitamin B-6] 100 mg PO DAILY 01/08/17 [History] Potassium Chloride [Klor-Con 10] 20 meq PO BIDMEALS #60 tab.er 01/12/17 [Rx] cloNIDine [Catapres] 0.1 mg PO QID #120 tablet 01/12/17 [Rx] Past Medical History HEENT History: Reports: Other (See Below) Cardiovascular History: Reports: Hypertension Respiratory History: Reports: None Gastrointestinal History: Reports: GERD Genitourinary History: Reports: None UI APPLICATION DEVELOPER History: Reports: None Musculoskeletal History: Reports: None Neurological History: Reports: Alzheimers Disease, Vertigo Psychiatric History: Reports: Alzheimers Disease, Dementia Endocrine/Metabolic History: Reports: Hypothyroidism Hematologic History: Reports: None Immunologic History: Reports: None Oncologic (Cancer) History: Reports: Uterine Dermatologic History: Reports: None - Infectious Disease History Infectious Disease History: Reports: None - Past Surgical History Head Surgeries/Procedures: Reports: None HEENT Surgical History: Reports: None Cardiovascular Surgical History: Reports: Coronary Artery Bypass Respiratory Surgical History: Reports: None GI Surgical History: Reports: Other (See Below) Female Surgical History: Reports: Hysterectomy Endocrine Surgical History: Reports: None Neurological Surgical History: Reports: None Musculoskeletal Surgical History: Reports: None Oncologic Surgical History: Reports: None Dermatological Surgical History: Reports: None - Past Imaging History Past Imaging History: Reports: Other (See Below) (Unknown -Patient has PCP in [place]) Social & Family History - Family History Family Medical History: Noncontributory - Tobacco Use Smoking Status *Q: Never Smoker Second Hand Smoke Exposure: No - Caffeine Use Caffeine Use: Reports: Soda, Tea - Recreational Drug Use Recreational Drug Use: No ED ROS GENERAL - Review of Systems Review Of Systems: See Below (per family) Constitutional: Reports: Malaise, Weakness. Denies: Fever, Chills HEENT: Reports: Vertigo, Other (cannot see well). Denies: Sinus Problem, Throat Pain Respiratory: Denies: Shortness of Breath, Wheezing, Cough Cardiovascular: Reports: Chest Pain, Edema. Denies: Lightheadedness Endocrine: Denies: Fatigue GI/Abdominal: Reports: Nausea, Vomiting. Denies: Abdominal Pain, Constipation, Diarrhea : Reports: No Symptoms Musculoskeletal: Reports: No Symptoms Skin: Reports: No Symptoms Neurological: Reports: Confusion, Dizziness Psychiatric: Reports: Confusion ED EXAM, GENERAL - Physical Exam Exam: See Below Exam Limited By: No Limitations General Appearance: Alert, Mild Distress Ears: Normal External Exam, Normal TMs Nose: Normal Inspection, Normal Mucosa, No Blood Throat/Mouth: Normal Inspection, Normal Oropharynx Head: Normocephalic Neck: Normal Inspection, Supple, Non-Tender Respiratory/Chest: No Respiratory Distress, Lungs Clear, Normal Breath Sounds Cardiovascular: Regular Rate, Rhythm GI/Abdominal: Normal Bowel Sounds, Soft, Non-Tender Neurological: Alert. No: Oriented Skin Exam: Diaphoretic Course - Vital Signs Last Recorded V/S: Last Vital Signs Temp 97.1 F 01/16/17 19:47 Pulse 64 01/16/17 19:47 Resp 18 01/16/17 19:47 BP 191/76 H 01/16/17 19:47 Pulse Ox 95 01/16/17 19:47 - Orders/Labs/Meds Orders: Active Orders 24 hr Category Date Time Status EKG Documentation Completion [RC] ROUTINE Care 01/16/17 20:01 Active cloNIDine [Catapres] Med 01/17/17 19:44 Once 0.1 mg PO ONETIME ONE Medication Orders Clonidine HCl (Catapres) 0.1 mg PO ONETIME ONE Stop: 01/17/17 19:45 Labs: Laboratory Tests 01/16/17 01/16/17 01/16/17 Range/Units 20:09 20:09 20:23 WBC 5.5 (5.0-10.0) 10^3/uL RBC 4.62 (4.00-5.50) 10^6/uL Hgb 13.2 (12.0-16.0) g/dL Hct 41.0 (37.0-47.0) % MCV 88.7 (82.0-94.0) fL MCH 28.6 (27.0-32.0) pg MCHC 32.2 L (33.0-38.0) g/dL RDW Coeff of Rachel 14.6 (11.0-15.0) % Plt Count 270 (150-400) 10^3/uL Neut % (Auto) 63.5 (35-85) % Lymph % (Auto) 22.9 (10-55) % [place] % (Auto) 10.8 (0-16) % Eos % (Auto) 2.4 (0-5) % Baso % (Auto) 0.4 (0-3) % Neut # (Auto) 3.48 (1.80-7.00) 10^3/uL Lymph # (Auto) 1.25 (1.00-4.80) 10^3/uL [place] # (Auto) 0.59 (0.00-0.80) 10^3/uL Eos # (Auto) 0.13 (0.00-0.45) 10^3/uL Baso # (Auto) 0.02 10^3/uL Sodium 140 (136-145) mEq/L Potassium 5.1 H D (3.5-5.0) mEq/L Chloride 103 (98-106) mEq/L Carbon Dioxide 28 (21-32) mmol/L BUN 17 D (7-18) mg/dL Creatinine 1.0 (0.6-1.0) mg/dL Est Cr Clr Drug Dosing 38.35 mL/min Estimated GFR (MDRD) 54 L (>=60) mL/min Glucose 113 H (75-99) mg/dL Calcium 9.2 (8.4-10.1) mg/dL Magnesium 1.9 (1.8-2.4) mg/dL Total Bilirubin 0.8 (0.0-1.0) mg/dL AST 34 (15-37) U/L ALT 29 (12-78) U/L Alkaline Phosphatase 81 (46-116) U/L Lactate Dehydrogenase 177 (100-190) U/L Creatine Kinase 46 (21-215) U/L Troponin I < 0.017 (0.00-0.06) ng/mL [id number] Pept 608 (0-1000) pg/nL Total Protein 6.9 (6.4-8.2) g/dL Albumin 3.1 L (3.4-5.0) g/dL Urine Color Straw (YELLOW) Urine Appearance Slightly cloudy (CLEAR) Urine pH 5.5 (4.5-8.0) Ur Specific [place] 1.017 (1.003-1.020) Urine Protein Negative (NEGATIVE) mg/dL Urine Glucose (UA) Negative (NEGATIVE) mg/dL Urine Ketones Trace H (NEGATIVE) mg/dL Urine Occult Blood Trace-intact H (NEGATIVE) Urine Nitrite Negative (NEGATIVE) Urine Bilirubin Negative (NEGATIVE) Urine Urobilinogen 0.2 (0.2-1.0) EU/dL Ur Leukocyte Esterase Negative (NEGATIVE) Urine RBC 0-5 (0-5) /HPF Urine WBC 0-5 (0-5) /HPF Ur Epithelial Cells Few H (NOT SEEN) /HPF Urine Bacteria Few H (NOT SEEN) /HPF Meds: Medications Generic Name Dose Route Start Last Admin Trade Name Freq PRN Reason Stop Dose Admin Clonidine HCl 0.1 mg 01/17/17 19:44 Catapres PO 01/17/17 19:45 ONETIME ONE Discontinued Medications Generic Name Dose Route Start Last Admin Trade Name Freq PRN Reason Stop Dose Admin Ondansetron HCl 4 mg 01/16/17 20:09 Zofran IM 01/16/17 20:10 NOW ONE Ondansetron HCl 1 packet 01/16/17 21:02 Take Home: Ondansetron Odt 4 Mg, 2 Tab Pack PO 01/16/17 21:03 ONETIME ONE - Re-Assessments/Exams Free Text/Narrative Re-Assessment/Exam: 01/16/172044 Patient much improved from the Zofran. Sitting up visiting with and [id number]. She admits to feeling less dizzy. Labs are all relatively normal. Potassium up to 5.1. Will cut back on her potassium to daily and repeat labs in 3 days. Start Meclizine for dizziness. Departure - Departure Time of Disposition: 20:57 Disposition: [facility] Condition: Fair Clinical Impression: Vertigo Nausea & vomiting Qualifiers: Vomiting type: bilious vomiting Qualified Code(s): R11.14 - Bilious vomiting - Discharge Information Referrals: Gordon Munson MD [Primary Care Provider] - Forms: ED Department Discharge Additional Instructions: 1. Push fluids 2. Reduce potassium to 20 meq daily 3. Check BMP on Wednesday 4. Meclizine 25 mg three times a day 5. Zofran 4 mg every 6 hours as needed for nausea 6. Consult with Dr. Munson after lab work next week. - My Orders Last 24 Hours: My Active Orders 01/16/17 20:01 EKG Documentation Completion [RC] ROUTINE 01/17/17 19:44 cloNIDine [Catapres] 0.1 mg PO ONETIME ONE - Assessment/Plan Last 24 Hours: My Active Orders 01/16/17 20:01 EKG Documentation Completion [RC] ROUTINE 01/17/17 19:44 cloNIDine [Catapres] 0.1 mg PO ONETIME ONE
[2017-01-16 20:39] LABS: CHLORIDE,CL 103 mEq/L (98-106); SODIUM,NA 140 mEq/L (136-145)
[2017-01-16] MEDS ORDERED: Take Home: Ondansetron 4 MG Tab.DIS, 2 Tab Pack PO ONE (21:02)
[2017-01-17] MEDS ORDERED: Meclizine 12.5 MG Tab ONE (03:23)
[2017-01-17] MEDS ORDERED: cloNIDine 0.1 MG Tab ONE (03:24)
[2017-01-17] MEDS ORDERED: cloNIDine 0.1 MG Tab PO ONE (19:44)
== END 2017-01-16 21:11 | disposition home or self-care (01) ==
LOC: SUPCPDRO 19:40 → CC.ED 19:40
DX: R42 Dizziness and giddiness (principal); R11.14 Bilious vomiting; I10 Essential (primary) hypertension; K21.9 Gastro-esophageal reflux disease without esophagitis; G30.9 Alzheimer's disease, unspecified; F02.80 Dementia in other diseases classified elsewhere, unspecified severity, without behavioral disturbance, psychotic disturbance, mood disturbance, and anxiety; E03.9 Hypothyroidism, unspecified; Z95.1 Presence of aortocoronary bypass graft; Z79.82 Long term (current) use of aspirin; Z90.710 Acquired absence of both cervix and uterus
CPT/HCPCS: 36415; 80053; 81001; 82550; 83615; 83735; 83880; 84484; 85025; 93005; 96372; 99284; A9270; J2405; 93010

== ENCOUNTER → 2017-06-11 | Day surgery (SDC) | payer MEDICARE, OTHER ==
[~2017-06-11] MED LIST: Lactated Ringers 1,000 ML IV SCH; Propofol 200 MG/20 ML SDV IV ONE
[2017-06-11 13:51] VITALS: BP 155/51
--- NOTE | 2017-06-11 15:38 | OR ---
DATE OF OPERATION: 06/11/2017 PREOPERATIVE DIAGNOSIS: 1. GASTROESOPHAGEAL REFLUX DISEASE. 2. ALTERED BOWEL HABITS. POSTOPERATIVE DIAGNOSIS: 1. GASTROESOPHAGEAL REFLUX DISEASE. 2. ALTERED BOWEL HABITS. SURGEON: Andrea Hanson MD PROCEDURE: 1. EGD WITH POLYP REMOVAL X2. 2. FULL LENGTH COLONOSCOPY TO PROXIMAL TRANSVERSE COLON. ANESTHESIA: BARREL INSPECTOR due to some chronic GERD and obesity. COMPLICATIONS: None. SPECIMEN: Fundal polyps x2. FINDINGS: 1. Full-length EGD. 2. Adenomatous polyps of fundus and stomach diffuse. 3. Chronic gastroesophageal reflux disease related to small hiatal hernia without esophagitis or Inman's changes. 4. Incomplete colonoscopy to approximate hepatic flexure due to extremely poor prep and markedly tortuous colon. RECOMMENDATIONS: Medical follow up Dr. Munson. INDICATIONS: The patient currently resides at [facility]. She presented to Dr. Munson for a physical and admitted to some chronic reflux and altered bowel habits. Dr. Munson sent her for upper and lower endoscopy. DESCRIPTION OF PROCEDURE: The patient was prepped and draped, placed in the left lateral decubitus position. A lubricated Olympus gastroscope was inserted, advanced to the cricopharyngeus area, and easily intubated into the esophagus. Esophageal lining was benign in its entire course. The Z-line was crisp and sharp around 35 cm. There was a mild-sized hiatal hernia present with spontaneous reflux seen but no distal esophagitis, stricturing, ulceration, or Inman's changes. The scope was intubated in the stomach through the pylorus and the second portion of the duodenum, this and the duodenal bulb were benign. The scope was brought back into the stomach and retroflexed the upper fundus confirmed the hernia. The cardia portion of stomach and upper fundus were benign. The patient does have diffuse adenomatous polyps throughout the stomach lining, mostly only located in the fundus. Two of these were removed which were electronics parts sales representative samples and these appeared completely benign. No peptic ulcer disease was seen, no other worrisome masses, lesions, or signs of gastritis was seen. Air was suctioned, scope was removed without complication. A lubricated Olympus colonoscope was then inserted. The patient had a very difficult scope, very tortuous. She had extremely poor prep, it was very difficult to see, and we just felt it was unsafe to continue to push through. Once we got over to the proximal transverse colon near the hepatic flexure, the patient had solid stool which we would not be able to get through any length. From that point upon withdrawal throughout the length of the colon, I could find no obvious polyps, mass, ulceration, or bleeding sites. No obvious vascular abnormalities or signs of colitis and find any masses or any obvious indication of the patient's altered bowel habits, but visualization was very difficult due to her prep. The rectal vault appeared benign. I did not see any perirectal lesions with retroflexion. Air was suctioned, scope removed without complication. ANGELA/ANDERS /[id number]
== END ==
LOC: CC.SDS 11:40
PROVIDERS: ATTEND Family Medicine
DX: K31.7 Polyp of stomach and duodenum (principal); K21.9 Gastro-esophageal reflux disease without esophagitis; R19.4 Change in bowel habit; K44.9 Diaphragmatic hernia without obstruction or gangrene; I25.10 Atherosclerotic heart disease of native coronary artery without angina pectoris; E55.9 Vitamin D deficiency, unspecified; E03.9 Hypothyroidism, unspecified; E78.5 Hyperlipidemia, unspecified; Z95.1 Presence of aortocoronary bypass graft; Z79.82 Long term (current) use of aspirin; Z79.899 Other long term (current) drug therapy
CPT/HCPCS: 43239; 45378; J2704; J7120; 00813; 88305

== ENCOUNTER 2019-08-03 15:31 | Emergency (ER) | payer MEDICARE, OTHER ==
[2019-08-03 15:38] VITALS: BP 155/72; PULSE 102
--- NOTE | 2019-08-03 16:12 | EDM.PDOC ---
ED HPI GENERAL MEDICAL PROBLEM - General Chief Complaint: Abdominal Pain Stated Complaint: GAS PAIN, BLOATING Time Seen by Provider: 08/03/19 15:47 Source of Information: Reports: Patient History Limitations: Reports: No Limitations - History of Present Illness INITIAL COMMENTS - FREE TEXT/NARRATIVE: Patient presents to ER with complaints of abdominal distention, gas pains. Patient has been having these issues for several months now. Has had a work up for this several times by Dr. Hanson, most recently a CT scan of her abdomen 2 weeks ago which was normal. Labs have been normal. She has been on Gas-X. Takes protonix. concerned that something more serious going on due to her constant complaints of pain. Patient has been eating and drinking well. Staff at [facility] report that she has not had any weight changes. No nausea/ vomiting or diarrhea. Has good consistent BMs. Does ambulate some at the long term. Staff report there that Dr. Hanson has discussed possibly doing an EGD if symptoms persist. insisted that she be seen today as "not getting answers". Duration: Week(s):, Intermittent Location: Reports: Abdomen Quality: Reports: Ache Severity: Moderate Associated Symptoms: Reports: Confusion. Denies: Chest Pain, Cough, Fever/ Chills, Loss of Appetite, Nausea/Vomiting, Shortness of Breath Abdominal Pain Score (Numeric/FACES): 6 - Related Data Allergies Allergy/AdvReac Type Severity Reaction Status Date / Time No Known Allergies Allergy Verified 08/03/19 15:47 Home Meds: Home Meds Aspirin 325 mg PO DAILY 01/08/17 [History] Cyanocobalamin (Vitamin B12) [Vitamin B12] 500 mcg PO BEDTIME 01/08/17 [History] Donepezil [Aricept] 10 mg PO QAM 01/08/17 [History] Levothyroxine [Synthroid] 88 mcg PO ACBREAKFAST 01/08/17 [History] Losartan [Cozaar] 50 mg PO DAILY 01/08/17 [History] Pantoprazole Sodium [Protonix] 20 mg PO DAILY 01/08/17 [History] Acetaminophen [Tylenol] 650 mg PO ASDIRECTED PRN 06/10/17 [History] Bismuth Subsalicylate [Pepto Bismol] 30 ml PO ASDIRECTED PRN 06/10/17 [History] Fluorometholone [Flarex 0.1% Ophth Susp] 1 drop EYEBOTH DAILY 06/10/17 [History] Hypromellose [Systane Gel] 1 drop EYEBOTH BEDTIME 06/10/17 [History] cycloSPORINE [Restasis] 1 drop EYEBOTH BID 06/10/17 [History] Carboxymethylcellulose Sodium [Refresh Tears] 1 drop EYEBOTH BID 08/03/19 [ History] Simethicone 160 mg PO BID 08/03/19 [History] Past Medical History - Past Health History Medical/Surgical History: Denies Medical/Surgical History HEENT History: Reports: Other (See Below) Other HEENT History: NERVE DAMAGE TO EYES, VERY POOR EYESIGHT Cardiovascular History: Reports: Hypertension Respiratory History: Reports: None Gastrointestinal History: Reports: GERD Genitourinary History: Reports: None WEB MARKETING SPECIALIST History: Reports: None Musculoskeletal History: Reports: None Neurological History: Reports: Alzheimers Disease, Vertigo Psychiatric History: Reports: Alzheimers Disease, Dementia Endocrine/Metabolic History: Reports: Hypothyroidism Hematologic History: Reports: None Immunologic History: Reports: None Oncologic (Cancer) History: Reports: Uterine Dermatologic History: Reports: None - Infectious Disease History Infectious Disease History: Reports: None - Past Surgical History Head Surgeries/Procedures: Reports: None Cardiovascular Surgical History: Reports: Coronary Artery Bypass Respiratory Surgical History: Reports: None GI Surgical History: Reports: Appendectomy Female Surgical History: Reports: Hysterectomy Endocrine Surgical History: Reports: None Neurological Surgical History: Reports: None Musculoskeletal Surgical History: Reports: None Oncologic Surgical History: Reports: None Dermatological Surgical History: Reports: None - Past Imaging History Past Imaging History: Reports: Other (See Below) (Unknown -Patient has PCP in [place]) Social & Family History - Family History Family Medical History: Noncontributory - Tobacco Use Smoking Status *Q: Never Smoker - Caffeine Use Caffeine Use: Reports: None - Recreational Drug Use Recreational Drug Use: No ED ROS GENERAL - Review of Systems Review Of Systems: See Below Constitutional: Denies: Fever, Chills, Malaise, Weakness, Decreased Appetite HEENT: Reports: No Symptoms Respiratory: Denies: Shortness of Breath, Cough Cardiovascular: Denies: Chest Pain, Edema, Lightheadedness Endocrine: Denies: Fatigue GI/Abdominal: Reports: Abdominal Pain, Distension. Denies: Constipation, Diarrhea, Nausea, Vomiting : Reports: No Symptoms Musculoskeletal: Reports: No Symptoms Skin: Reports: No Symptoms Neurological: Reports: Confusion, Weakness ED EXAM, GI/ABD - Physical Exam Exam: See Below Exam Limited By: No Limitations General Appearance: Alert, WD/WN, No Apparent Distress Ears: Normal External Exam, Normal TMs Nose: Normal Inspection, Normal Mucosa, No Blood Throat/Mouth: Normal Inspection, Normal Oropharynx Head: Normocephalic Neck: Normal Inspection, Supple, Non-Tender Respiratory/Chest: No Respiratory Distress, Lungs Clear, Normal Breath Sounds Cardiovascular: Regular Rate, Rhythm GI/Abdominal Exam: Normal Bowel Sounds, Soft, Tender (diffusely throughout) Extremities: Normal Inspection, No Pedal Edema Neurological: Alert, Oriented (person and place) Skin Exam: Warm, Dry Course - Vital Signs Last Recorded V/S: Last Vital Signs Temp 97.3 F 08/03/19 15:32 Pulse 102 H 08/03/19 15:32 Resp 18 08/03/19 15:32 BP 155/72 H 08/03/19 15:32 Pulse Ox 97 08/03/19 15:32 - Orders/Labs/Meds Orders: Active Orders 24 hr Category Date Time Status Abdomen 2V AP Flat Upright [CR] Stat Exams 08/03/19 15:39 Ordered UA RFX NIKITA AND CULT IF INDIC [URIN] Stat Lab 08/03/19 15:39 Ordered Labs: Laboratory Tests 08/03/19 08/03/19 Range/Units 15:39 15:50 WBC 8.4 (5.0-10.0) 10^3/uL RBC 5.13 (4.00-5.50) 10^6/uL Hgb 14.7 (12.0-16.0) g/dL Hct 45.7 (37.0-47.0) % MCV 89.1 (82.0-94.0) fL MCH 28.7 (27.0-32.0) pg MCHC 32.2 L (33.0-38.0) g/dL RDW Coeff of Rachel 14.3 (11.0-15.0) % Plt Count 306 (150-400) 10^3/uL Neut % (Auto) 71.0 (35-85) % Lymph % (Auto) 19.3 (10-55) % [place] % (Auto) 8.4 (0-16) % Eos % (Auto) 1.1 (0-5) % Baso % (Auto) 0.2 (0-3) % Neut # (Auto) 5.98 (1.80-7.00) 10^3/uL Lymph # (Auto) 1.63 (1.00-4.80) 10^3/uL [place] # (Auto) 0.71 (0.00-0.80) 10^3/uL Eos # (Auto) 0.09 (0.00-0.45) 10^3/uL Baso # (Auto) 0.02 10^3/uL Sodium 139 (136-145) mEq/L Potassium 4.6 (3.5-5.0) mEq/L Chloride 102 (98-106) mEq/L Carbon Dioxide 29 (21-32) mmol/L BUN 16 (7-18) mg/dL Creatinine 1.2 H (0.6-1.0) mg/dL Est Cr Clr Drug Dosing 26.86 mL/min Estimated GFR (MDRD) 43 L (>=60) mL/min Glucose 107 H (75-99) mg/dL Calcium 9.2 (8.4-10.1) mg/dL Total Bilirubin 0.3 (0.0-1.0) mg/dL AST 21 (15-37) U/L ALT 26 (12-78) U/L Alkaline Phosphatase 88 (46-116) U/L C-Reactive Protein 1.4 H (0.2-0.8) mg/dL Total Protein 7.4 (6.4-8.2) g/dL Albumin 3.1 L (3.4-5.0) g/dL - Re-Assessments/Exams Free Text/Narrative Re-Assessment/Exam: 08/03/19 16:17 Labs are all normal today. Abdomen xray is normal. Reassured . Patient does belch often, not passing flatus. Did discuss increasing Gas-X to QID and PRN and proceed with EGD. He is agreeable. As she does complain of GI burning, will add Carafate as well. Departure - Departure Time of Disposition: 16:18 Disposition: Home, Self-Care 01 Condition: Good Clinical Impression: Abdominal pain - Discharge Information Referrals: PCP,Unknown [Primary Care Provider] - Forms: ED Department Discharge Additional Instructions: 1. Push fluids 2. Ambulate 3. Increase Gas-X to QID and PRN 4. [place] diet 5. Carafate 1 gm TID before meals 6. Follow up in clinic with Dr. Hanson to discuss EGD Sepsis Event Note - Evaluation Sepsis Screening Result: No Definite Risk - Focused Exam Vital Signs: Vital Signs Temp Pulse Resp BP Pulse Ox 08/03/19 15:32 97.3 F 102 H 18 155/72 H 97 Date Exam was Performed: 08/03/19 Time Exam was Performed: 16:23 - My Orders Last 24 Hours: My Active Orders 08/03/19 15:39 Abdomen 2V AP Flat Upright [CR] Stat UA RFX NIKITA AND CULT IF INDIC [URIN] Stat - Assessment/Plan Last 24 Hours: My Active Orders 08/03/19 15:39 Abdomen 2V AP Flat Upright [CR] Stat UA RFX NIKITA AND CULT IF INDIC [URIN] Stat
== END 2019-08-03 17:21 | disposition home or self-care (01) ==
LOC: CC.ED 15:31
DX: R10.84 Generalized abdominal pain (principal); G30.9 Alzheimer's disease, unspecified; F02.80 Dementia in other diseases classified elsewhere, unspecified severity, without behavioral disturbance, psychotic disturbance, mood disturbance, and anxiety; I10 Essential (primary) hypertension; E03.9 Hypothyroidism, unspecified; K21.9 Gastro-esophageal reflux disease without esophagitis; Z79.82 Long term (current) use of aspirin; Z79.899 Other long term (current) drug therapy
CPT/HCPCS: 36415; 74019; 80053; 85025; 86140; 99284; 99284-25

== ENCOUNTER → 2019-08-11 | Day surgery (SDC) | payer MEDICARE, OTHER ==
[~2019-08-11] MED LIST changes: -Lactated Ringers 1,000 ML IV SCH
[2019-08-11] MEDS: Lactated Ringers 1,000 ML IV SCH (10:17)
[2019-08-11 12:11] VITALS: BP 154/65; PULSE 63
--- NOTE | 2019-08-11 15:22 | OR ---
DATE OF OPERATION: 08/11/2019 PREOPERATIVE DIAGNOSIS: ABDOMINAL BLOATING, EPIGASTRIC PAIN. POSTOPERATIVE DIAGNOSIS: ABDOMINAL BLOATING, EPIGASTRIC PAIN. SURGEON: Andrea Hanson MD PROCEDURE: EGD WITH BIOPSIES X2, VERENICE, POLYP REMOVAL X1. ANESTHESIA: MAC. COMPLICATIONS: None. SPECIMEN: 1. Antral biopsy x2. 2. Antral VERENICE. 3. Antral adenomatous polyp removal. FINDINGS: 1. Full-length EGD. 2. Antral polyposis, adenomatous and benign. 3. Diffuse antral gastritis. 4. Small erosion, mid antrum. RECOMMENDATIONS: I will hold the patient's aspirin, start her on b.i.d. Protonix, and wait for biopsy reports and VERENICE testing. INDICATIONS: The patient is [place] who has been having ongoing issues with bloating and belching and some epigastric pain. Workup thus far including labs and CT of the abdomen have been negative. Medication withdrawal has not given her improvement and we elected to proceed with EGD at family request. DESCRIPTION OF PROCEDURE: The patient was prepped and draped, placed in the left lateral decubitus position with head of the bed elevated. A lubricated Olympus gastroscope was inserted over a bit, advanced to the cricopharyngeus area, and easily intubated into the esophagus. The esophageal lining was benign in its entire course. The Z-line was crisp and sharp at 39 cm. No spontaneous reflux was seen. There was no distal esophagitis, stricturing, ulceration, or Inman's changes. The scope was advanced into the stomach, through the pylorus, and into the 2nd portion of the duodenum. This and the duodenal bulb were unremarkable. The scope was brought back into the stomach and retroflexed. The upper fundus and cardia were benign without any obvious inflammatory changes. The patient had diffuse polyposis in the fundus and antrum, most prevalent around the pyloric area. We did remove 1 of these polyps for definitive diagnosis. There is chronic-appearing gastritis of the antrum diffusely with 1 small area of erosion. We did 2 cordage sales representative biopsies and a CLOtest. Air was then suctioned from the stomach and the scope removed without complication. ANGELA/ANDERS /[id number] CC: Ronny Mccoy
== END ==
LOC: CC.SDS 09:31
PROVIDERS: ATTEND Family Medicine
DX: K29.50 Unspecified chronic gastritis without bleeding (principal); K31.89 Other diseases of stomach and duodenum; D13.1 Benign neoplasm of stomach; K25.9 Gastric ulcer, unspecified as acute or chronic, without hemorrhage or perforation; K58.9 Irritable bowel syndrome, unspecified; I10 Essential (primary) hypertension; E03.9 Hypothyroidism, unspecified; K21.9 Gastro-esophageal reflux disease without esophagitis; M19.90 Unspecified osteoarthritis, unspecified site; Z79.899 Other long term (current) drug therapy; Z79.82 Long term (current) use of aspirin
CPT/HCPCS: 00731; 43239; 87081; J2704; J7120

== ENCOUNTER 2023-05-25 20:16 | Observation (INO) | payer MEDICARE, OTHER ==
[2023-05-25 20:41] LABS: BASOPHILS ABSOLUTE AUTO 0.05 10^3/uL (0.00-0.50); BASOPHILS PERCENT AUTO 0.3 % (0-1); EOSINOPHILS ABSOLUTE AUTO 0.13 10^3/uL (0.00-1.50); EOSINOPHILS PERCENT AUTO 0.9 % (0-6); HEMATOCRIT 42.1 % (37.0-47.0); IMMATURE GRAN ABSOLUTE AUTO 0.02 10^3/uL (0.00-0.49); IMMATURE GRAN PERCENT AUTO 0.1 % (0.0-4.9); LYMPHOCYTES ABSOLUTE AUTO 2.71 10^3/uL (0.60-5.00); MEAN CORPUSCULAR HEMOGLOBIN 30.4 pg (27.0-32.0); MEAN CORPUSCULAR HGB CONC 33.3 g/dL (32.0-36.0); MEAN CORPUSCULAR VOLUME 91.3 fL (83.0-97.0); MONOCYTES PERCENT AUTO 6.6 % (0-10); NEUTROPHILS ABSOLUTE AUTO 11.14 x10^3/uL (1.80-8.00); NEUTROPHILS PERCENT AUTO 74.1 % (41-71); PLATELET COUNT,PLT 312 10^3/uL (150-400); RED BLOOD CELL COUNT 4.61 x10^6/uL (4.00-5.50); WHITE BLOOD CELL COUNT,WBC 15.1 10^3/uL (4.0-11.0)
[2023-05-25] MEDS ORDERED: Ondansetron 4 MG/2 ML SDV IVPUSH STA (20:44)
[2023-05-25 20:58] LABS: ALBUMIN 2.8 g/dL (3.4-5.0); BILIRUBIN TOTAL 0.5 mg/dL (0.0-1.0); C-REACTIVE PROTEIN 2.1 mg/dL (<=0.50); EST CRCL DRUG DOSING (CG) 30.08 mL/min; MAGNESIUM 1.6 mg/dL (1.8-2.4); POTASSIUM,K 3.6 mEq/L (3.5-5.0); PROTEIN TOTAL,TP 7.4 g/dL (6.4-8.2)
[2023-05-25] MEDS ORDERED: Iopamidol 755 Mg/ML 100 ML Bottle IVPUSH ONE (21:04)
[2023-05-25] MEDS ORDERED: fentaNYL 50 MCG/ML SDV IVPUSH ONE (21:08)
[2023-05-25 21:58] LABS: BILIRUBIN,URINE NEGATIVE (NEGATIVE); COLOR,URINE YELLOW (YELLOW); GLUCOSE,URINE NEGATIVE (NEGATIVE); KETONES,URINE NEGATIVE (NEGATIVE); LEUKOCYTE ESTERASE,URINE TRACE (NEGATIVE); NITRITE,URINE NEGATIVE (NEGATIVE); OCCULT BLOOD,URINE SMALL (NEGATIVE); PROTEIN,URINE NEGATIVE (NEGATIVE); UROBILINOGEN,URINE 0.2 EU/dL (0.2-1.0)
[2023-05-25 22:06] LABS: APPEARANCE,URINE SLIGHTLY CLOUDY (CLEAR); BACTERIA,URINE MODERATE /HPF (NOT SEEN); EPITHELIAL CELLS,URINE RARE /HPF (NOT SEEN); RBC,URINE 0-5 /HPF (0-5); WBC CLUMPS,URINE FEW /HPF (NOT SEEN); WBC,URINE 20-30 /HPF (0-5)
[2023-05-25] MEDS ORDERED: cefTRIAXone 1 GM Vial IVPUSH ONE (22:07)
[2023-05-25] MEDS ORDERED: Docusate Sodium 100 MG Cap PO PRN (23:16)
[2023-05-25] MEDS ORDERED: Sodium Chloride 0.9% 1,000 ML IV ONE (23:16)
[2023-05-25] MEDS ORDERED: Acetaminophen 650 MG Supp RECTAL PRN (23:16)
[2023-05-25] MEDS ORDERED: Acetaminophen 325 MG Tab PO PRN (23:16)
[2023-05-25] MEDS ORDERED: Polyethylene Glycol 3350 Powder 17 GM Packet PO PRN (23:16)
[2023-05-26] MEDS ORDERED: Ondansetron 4 MG Tab.DIS PO PRN (03:00)
[2023-05-26] MEDS ORDERED: Ondansetron 4 MG/2 ML SDV IV PRN (03:00)
[2023-05-26] MEDS ORDERED: fentaNYL 50 MCG/ML SDV IVPUSH PRN (03:00)
[2023-05-26 07:44] LABS: BASOPHILS ABSOLUTE AUTO 0.04 10^3/uL (0.00-0.50); BASOPHILS PERCENT AUTO 0.3 % (0-1); EOSINOPHILS ABSOLUTE AUTO 0.07 10^3/uL (0.00-1.50); EOSINOPHILS PERCENT AUTO 0.5 % (0-6); HEMOGLOBIN 13.3 g/dL (12.0-16.0); IMMATURE GRAN ABSOLUTE AUTO 0.02 10^3/uL (0.00-0.49); IMMATURE GRAN PERCENT AUTO 0.1 % (0.0-4.9); LYMPHOCYTES ABSOLUTE AUTO 2.39 10^3/uL (0.60-5.00); MEAN CORPUSCULAR HEMOGLOBIN 30.3 pg (27.0-32.0); MEAN CORPUSCULAR HGB CONC 32.4 g/dL (32.0-36.0); MEAN CORPUSCULAR VOLUME 93.4 fL (83.0-97.0); MONOCYTES ABSOLUTE AUTO 0.96 10^3/uL (0.00-1.50); MONOCYTES PERCENT AUTO 6.8 % (0-10); NEUTROPHILS ABSOLUTE AUTO 10.57 x10^3/uL (1.80-8.00); NEUTROPHILS PERCENT AUTO 75.3 % (41-71); PLATELET COUNT,PLT 324 10^3/uL (150-400); RED BLOOD CELL COUNT 4.39 x10^6/uL (4.00-5.50); WHITE BLOOD CELL COUNT,WBC 14.1 10^3/uL (4.0-11.0)
[2023-05-26] MEDS ORDERED: cefTRIAXone 1 GM Vial IVPUSH SCH (08:00)
[2023-05-26 08:10] LABS: CALCIUM 8.7 mg/dL (8.4-10.1); EST CRCL DRUG DOSING (CG) 30.08 mL/min; MAGNESIUM 1.7 mg/dL (1.8-2.4); POTASSIUM,K 4.3 mEq/L (3.5-5.0)
[2023-05-26 09:44] VITALS: BP 128/76; PULSE 85
[2023-05-26] MEDS ORDERED: FLU (Fluad Quad) 2023-24(65UP)/MF59C/PF 60 MCG/0.5 ML Syringe IM ONE (10:00)
== END 2023-05-26 12:10 | disposition home or self-care (01) ==
LOC: SUPCPDRO 20:16 → CC.ED 20:16 → CC.MS 22:20 → UNDOADMOB 22:22
PROVIDERS: ADMIT Nurse Practitioner; ATTEND Nurse Practitioner
DX: N30.00 Acute cystitis without hematuria (principal); D72.9 Disorder of white blood cells, unspecified; I10 Essential (primary) hypertension; G30.9 Alzheimer's disease, unspecified; F02.80 Dementia in other diseases classified elsewhere, unspecified severity, without behavioral disturbance, psychotic disturbance, mood disturbance, and anxiety; K21.9 Gastro-esophageal reflux disease without esophagitis; E03.9 Hypothyroidism, unspecified; Z20.822 Contact with and (suspected) exposure to COVID-19; Z79.82 Long term (current) use of aspirin; Z79.899 Other long term (current) drug therapy; Z79.890 Hormone replacement therapy
CPT/HCPCS: 36415; 71045; 74177; 80048; 80053; 81001; 83605; 83690; 83735; 84484; 85025; 86140; 87086; 87088; 87186; 87804; 93005; 96374; 96375; 96376; 99285-25; G0378; J0696; J2405; J3010; J7030; Q9967; U0002